=== PATIENT | female | born 1965 | race Caucasian/White ===

== ENCOUNTER 2018-03-30 06:34 | Day surgery (SDC) | payer BC ==
[2018-03-30] MEDS ORDERED: Propofol 200 MG/20 ML SDV IV ONE (06:35)
[2018-03-30] MEDS ORDERED: Lactated Ringers 1,000 ML IV SCH (06:45)
[2018-03-30] MEDS ORDERED: Sodium Chloride 0.9% 10 ML Syringe FLUSH PRN (06:45)
--- NOTE | 2018-03-30 08:31 | PCM.OPNOTE ---
- General Post-Op/Procedure Note Date of Surgery/Procedure: 03/30/18 Operative Procedure(s): c scope with bx Findings: rectal polyp Pre Op Diagnosis: screening Post-Op Diagnosis: rectal polyp Anesthesia Technique: MAC Primary Surgeon: Vicente Velarde Anesthesia Provider: Abilio Zamorano Pathology: rectal polyp Complications: None Condition: Good Free Text/Narrative:: see dictation
--- NOTE | 2018-03-30 09:47 | PREOP ---
ADMISSION DATE: 03/30/2018 CHIEF COMPLAINT: Need for screening colonoscopy. HISTORY OF PRESENT ILLNESS: This is a 52-year-old white female referred for screening colonoscopy. She has no complaints. No other significant issues. Has never had a scope and has a negative family history. SOCIAL HISTORY: The patient is , has 4 children. PAST MEDICAL HISTORY: Significant for fibrocystic change, multiple thyroid nodules. PAST SURGICAL HISTORY: Negative. FAMILY HISTORY: Significant for hypertension and breast cancer. CURRENT MEDICATIONS: Include: 1. Prilosec 20 mg daily. 2. Multivitamins with iron 1 per day. ALLERGIES: She has no known drug allergies. REVIEW OF SYSTEMS: Negative for constitutional, HEENT, respiratory, cardiovascular, gastrointestinal, genitourinary, musculoskeletal. PHYSICAL EXAMINATION: GENERAL: This is a well-developed, well-nourished white female, appearing in no acute distress. HEENT: Grossly within normal limits. LUNGS: Clear to auscultation. HEART: Regular rate and rhythm. ABDOMEN: Soft, nontender with no rebound or guarding. ASSESSMENT: Need for screening C-scope. PLAN: Colonoscopy. Procedure and risks explained to the patient to include bleeding, perforation, and infection. The patient expresses understanding and she asked us to proceed. /[id number] /MODL
--- NOTE | 2018-03-30 09:53 | OR ---
DATE OF OPERATION: 03/30/2018 SURGEON: Vicente Velarde MD PROCEDURE PERFORMED: Colonoscopy with cold forceps biopsy. PREOPERATIVE DIAGNOSIS: Need for screening C-scope. POSTOPERATIVE DIAGNOSIS: Rectal polyp. INDICATIONS FOR PROCEDURE: This is a 52-year-old white female referred for initial screening colonoscopy, offered and accepted same. DESCRIPTION OF OPERATION: After an excellent IV sedation was administered, digital rectal exam was performed. No marked abnormality was noted. The flexible colonoscope was inserted and advanced to the cecum without difficulty. Prep was excellent. The following findings were noted. Ascending colon, unremarkable. Transverse colon, unremarkable. Descending colon, unremarkable. Sigmoid, unremarkable. Rectum, a small polypoid lesion, biopsied with cold biopsy forceps and sent for permanent. The patient tolerated the procedure well. Results by letter. /[id number] /[id number]
== END 2018-03-30 09:13 | disposition home or self-care (01) ==
LOC: FB.SDS 06:34
PROVIDERS: ATTEND Surgery
DX: Z12.11 Encounter for screening for malignant neoplasm of colon (principal); K62.1 Rectal polyp; Z79.899 Other long term (current) drug therapy
CPT/HCPCS: 45380; 81025; 88305; J2704; J7120